=== PATIENT | female | born 1980 | race Caucasian/White ===

== ENCOUNTER 2019-04-06 12:47 | Emergency (ER) | payer BC, OTHER ==
--- NOTE | 2019-04-06 13:13 | PDOC ---
Rapid Medical Evaluation Time Seen by Provider: 04/06/19 13:07 Medical Evaluation: 04/06/19 13:08 I have performed a brief in-person evaluation of this patient. The patient presents with a chief complaint of: Epigastric/pain x several days, worse at nights w/ n/v. Possible worse w/ food. Not better w/ OTC meds. Had similar sxs during remotely. No sig pain at this time. H/o IBS Pertinent physical exam findings:Stable and well gordo I have ordered the following:ekg, ua/preg The patient will proceed to the ED for further evaluation. Discharge Disposition - Diagnosis Epigastric abdominal pain - Referrals - Patient Instructions - Post Discharge Activity
[2019-04-06 13:19] VITALS: BP 127/74; PULSE 95; TEMP 98.3; BMI 32.0
[2019-04-06] MEDS ORDERED: MAG HYDROX/AL HYDROX/SIMETH 30 ML UNIT-DOSE CUP PO ONE (15:16)
--- NOTE | 2019-04-06 15:21 | PDOC ---
History of Present Illness - General Chief Complaint: Pain Stated Complaint: CHEST PAIN Time Seen by Provider: 04/06/19 13:07 - History of Present Illness Initial Comments: 04/06/19 15:19 38 years old no significant past medical history no hypertension or diabetes does smoke an occasional cigarette positive family history of coronary artery disease presents to the emergency department with one-week history of nocturnal reflux-type symptoms burning sensation in her chest when she goes to sleep at night usually resolves with no intervention. Since Tuesday she has had a more constant epigastric left-sided abdominal burning sensation today she presented to an urgent care and was sent to the ED for further evaluation. The discomfort is not exertional described as a burning sensation no associated diaphoresis Symptoms are mild to moderate since Tuesday persistent constant for the last day. Past History - Past Medical History Allergies/Adverse Reactions: Allergies Allergy/AdvReac Type Severity Reaction Status Date / Time Penicillins Allergy Verified 04/06/19 13:17 - Suicide/Smoking/Psychosocial Hx Smoking History: Current some day smoker Have you smoked in the past 12 months: No Number of Cigarettes Smoked Daily: 1 Information on smoking cessation initiated: Yes Review of Systems - Review of Systems Comments:: 04/06/19 15:19 ROS: A complete review of 10 out of 10 review of systems is taken and is negative apart from what is previously mentioned below and in the HPI. *Physical Exam - Vital Signs Last Vital Signs Temp Pulse Resp BP Pulse Ox 98.3 F 95 H 20 127/74 99 04/06/19 13:17 04/06/19 13:17 04/06/19 13:17 04/06/19 13:17 04/06/19 13:17 - Physical Exam Comments: 04/06/19 15:19 Vitals: Triage Vital signs reviewed General Appearance: no acute distress, well nourished well developed, Head: Atraumatic, Chest Wall: Nontender Cardiac: Regular rate and rhythym, no murmurs, no rubs, no gallops, Lungs: Clear to auscultation bilateral, good air movement bilaterally, Abdomen: Soft, non distended, normal bowel sounds, non tender to palpation Extremities: Full range of motion to all extremities, no cyanosis, clubbing, or edema Skin: Warm and dry, no rashes or lesions, no rash, no petechiae Psych: normal mood, normal affect Heart Score/ECG Review - History History: Slightly suspicious - Electrocardiogram EKG: Normal - Age Age: </= 45 - Risk Factors Risk Factors Heart Score: Yes Smoking History, Yes Positive family hx of cardiac disease Based on the list above the patient has:: 1-2 risk factors - Troponin Troponin: </= normal limit - Score Heart Score - Total: 1 - ECG Impressions Comment:: 04/06/19 15:21 EKG performed at 1245 demonstrates normal sinus rhythm no ST elevations no T- wave inversions Interpreted by me. ED Treatment Course - LABORATORY CBC & Chemistry Diagram: 04/06/19 15:30 04/06/19 15:30 Medical Decision Making - Medical Decision Making 04/06/19 16:09 Very atypical discomfort 24 hours constant nonexertional most likely GI nonischemic EKG Heart score: 1 Results discussed with patient her current risk of major adverse coronary event at this time is 1.6 her percent I offered the patient a second 3 hour troponin to decrease her wrist 0.8% she feels comfortable at this time returning home she will follow-up with her doctor I provided her with gastroenterology and cardiology follow-up. Findings, the need for follow-up and strict return instructions discussed with patient. *DC/Admit/Observation/Transfer Diagnosis at time of Disposition: Epigastric abdominal pain - Discharge Dispostion Disposition: HOME Decision to Admit order: No - Referrals Referrals: Georges Osorio [Primary Care Provider] - Nicole Pulliam DO [Staff Physician] - Joaquim Hannon MD [Staff Physician] - - Patient Instructions Printed Discharge Instructions: DI for Abdominal Pain-Adult Additional Instructions: Take [id number] Pepcid as prescribed follow-up with your primary care doctor as well as Dr. Jain for gastroenterology and Dr. Hannon for any chest pain Return to ED for any severe worsening symptoms or for any concerns. - Post Discharge Activity
[2019-04-06] MEDS ORDERED: MAG HYDROX/AL HYDROX/SIMETH 30 ML UNIT-DOSE CUP ONE (15:33)
[2019-04-06 15:50] LABS: BASO % 0.4 % (0-2.0); EOS % 1.2 % (0-4.5); HEMATOCRIT 37.8 % (32.4-45.2); HEMOGLOBIN 12.7 GM/dL (10.7-15.3); LYMPH % 25.5 % (8-40); MCH 29.3 pg (25.7-33.7); MCHC 33.6 g/dl (32.0-36.0); MEAN CELL VOLUME 87.3 fl (80-96); MEAN PLT VOLUME 8.1 fl (7.5-11.1); MONO % 9.6 % (3.8-10.2); NEUT % 63.3 % (42.8-82.8); PLATELET COUNT 301 K/MM3 (134-434); RBC 4.33 M/mm3 (3.60-5.2); RDW 13.3 % (11.6-15.6)
[2019-04-06 16:19] LABS: PH,URINE 6.5 (5.0-8.0); URINE APPEARANCE CLEAR; URINE BILIRUBIN NEGATIVE (NEGATIVE); URINE COLOR YELLOW; URINE GLUCOSE (UA) NEGATIVE (NEGATIVE); URINE KETONE TRACE (NEGATIVE); URINE LEUK ESTERASE NEGATIVE (NEGATIVE); URINE NITRITE NEGATIVE (NEGATIVE); URINE PROTEIN NEGATIVE (NEGATIVE); URINE UROBILINOGEN 0.2 mg/dL (0.2-1.0)
[2019-04-06 16:21] LABS: ALK PHOS 61 U/L (45-117); ANION GAP 5 MMOL/L (8-16); BILIRUBIN,TOTAL 0.4 mg/dL (0.2-1); BLOOD UREA NITROGEN 11.2 mg/dL (7-18); CALCIUM 9.3 mg/dL (8.5-10.1); CHLORIDE 108 mmol/L (98-107); CO2 27 mmol/L (21-32); CREATININE 0.7 mg/dL (0.55-1.3); GLUCOSE,RANDOM 108 mg/dL (74-106); POTASSIUM 4.3 mmol/L (3.5-5.1); SGOT/AST 15 U/L (15-37); SGPT/ALT 28 U/L (13-61); SODIUM 140 mmol/L (136-145); TOT PROT 7.3 g/dl (6.4-8.2)
--- NOTE | 2019-04-08 17:46 | EKG ---
Test Reason : Blood Pressure : / mmHG Vent. Rate : 082 BPM Atrial Rate : 082 BPM P-R Int : 146 ms QRS Dur : 080 ms QT Int : 356 ms P-R-T Axes : 063 018 036 degrees QTc Int : 415 ms NORMAL SINUS RHYTHM NORMAL ECG NO PREVIOUS ECGS AVAILABLE Confirmed by GÓMEZ CESPEDES MD ([id number]) on 04/08/2019 5:46:13 PM Referred By: Confirmed By:GÓMEZ CESPEDES MD
== END 2019-04-06 16:00 | disposition home or self-care (01) ==
LOC: JER 12:47
DX: R10.13 Epigastric pain (principal)
CPT/HCPCS: 36415; 80053; 81003; 84484; 84703; 85025; 93005; 93010; 99283-25